=== PATIENT | female | born 1965 | race Caucasian/White ===

== ENCOUNTER 2019-07-18 08:28 | Outpatient (CLI) | payer BC, SELFPAY ==
--- NOTE | 2019-07-18 08:45 | CT_ITS ---
WS: [id number] CT ABDOMEN PELVIS TECHNIQUE: Contrast-enhanced CT of the abdomen and pelvis with coronal and sagittal reformatted image s. CLINICAL INFORMATION: SPLENOMEGALY, HEPATOMEGALY COMPARISON: None. DLP: 1113.[address] scans at [facility] use at least one of these dose optimization techniques: automat ed exposure control; mA and/or kV adjustment per patient size (includes targeted exams where dose is matched to clinical indication); or iterative reconstruction. FINDINGS: Mild diffuse fatty infiltration of the liver. Hepatomegaly. Spleen measures 11 CM [id number] within normal limits. No splenomegaly. Normal gastroesophageal junction. Small left pleural effusion with r ound atelectasis left lung base. Calcified granulomas in the lung bases. Normal portal vein and splen ic vein. Normal gallbladder. Adrenal glands are normal. Normal renal parenchymal enhancement. No abdominal lymphadenopathy. No periaortic or retroperitoneal lymphadenopathy. A few shoddy periaort ic lymph nodes. No inguinal lymphadenopathy. Degenerative disc disease L5-S1. CT/CT abdomen pelvis w con* [id number] IMPRESSION: 1. Mild diffuse fatty infiltration the liver with hepatomegaly. 2. Spleen within normal limits. 3. A few shotty periaortic lymph nodes. No abdominal lymphadenopathy. 4. Normal renal parenchymal enhancement. No hydronephrosis. 5. Small left pleural effusion with round atelectasis left lung base. 6. Normal caliber abdominal aorta.
[2019-07-18] MEDS: iohexol 300 mg/mL 100 mL Btl IV (10:08)
[2019-07-18] MEDS: iohexol 300 mg/mL 50 mL Btl PO (10:09)
== END 2019-07-18 08:29 | disposition home or self-care (01) ==
PROVIDERS: Family Provider Electrodiagnostic Medicine; PCP Family Medicine; Visit Provider Electrodiagnostic Medicine
DX: J90 Pleural effusion, not elsewhere classified (principal); R16.1 Splenomegaly, not elsewhere classified; R16.0 Hepatomegaly, not elsewhere classified; K76.0 Fatty (change of) liver, not elsewhere classified
CPT/HCPCS: 74177; Q9967

== ENCOUNTER 2019-10-29 13:40 | Outpatient (CLI) | payer BC, SELFPAY ==
[2019-11-01 12:42] LABS: HEP C RNA Viral Load Quant <1.18 NOT DETECTED Log IU/mL (NOT DETECTED); HEP C RNA Viral Load Quant <15 NOT DETECTED IU/mL (NOT DETECTED)
== END 2019-10-29 13:41 | disposition home or self-care (01) ==
LOC: LAB 13:43
PROVIDERS: Family Provider Electrodiagnostic Medicine; PCP Electrodiagnostic Medicine; Visit Provider Internal Medicine
DX: B19.20 Unspecified viral hepatitis C without hepatic coma (principal)
CPT/HCPCS: 36415; 87522

== ENCOUNTER 2020-01-03 14:51 | Outpatient (CLI) | payer BC, SELFPAY ==
--- NOTE | 2020-01-03 14:57 | XRR_ITS ---
PROCEDURE INFORMATION: Exam: XR Left Foot Complete Exam date and time: 01/03/2020 3:25 PM Age: 54 years old Clinical indication: Patient HX: Pain in joint involving left ankle and foot TECHNIQUE: Imaging protocol: XR Left foot. Views: 3 or more views. COMPARISON: US SoftTissue/Extrem Lmt [id number] 10/14/2018 8:53 AM FINDINGS: Bones/joints: There are mild diffuse degenerative changes in the foot. More prominent of the moderate degenerative changes at the 1st MTP joint and interphalangeal joint. There is some bony remodeling of the 5th proximal phalanx at the 5th PIP joint compatible with probable old remote injury. No periosteal reaction or inflammatory erosions. No acute fracture. No dislocation. The Lisfranc joint alignment is intact. There is a tiny calcaneal enthesophyte at the insertion of the Achilles tendon. No bony destruction or osteomyelitis. Soft tissues: There is no foreign body. XR/XR foot LT min 3V* [id number] IMPRESSION: No acute bony abnormality is identified. Degenerative changes are noted.
== END 2020-01-03 14:52 | disposition home or self-care (01) ==
LOC: RAD 14:54
PROVIDERS: PCP Electrodiagnostic Medicine; Visit Provider Electrodiagnostic Medicine
DX: M25.572 Pain in left ankle and joints of left foot (principal)
CPT/HCPCS: 73630

== ENCOUNTER 2021-02-17 09:25 | Outpatient (CLI) | payer BC, SELFPAY ==
--- NOTE | 2021-02-17 09:29 | CT_ITS ---
WS: [id number] CT NECK TECHNIQUE: Contrast-enhanced CT of the neck with coronal and sagittal reformatted images. CLINICAL INFORMATION: PARALYSIS OF VOCAL CORDS AND LARYNX, UNILATERAL, DYSPHONIA COMPARISON: None DLP: 1211.[address] scans at [facility] use at least one of these dose optimization techniques: automat ed exposure control; mA and/or kV adjustment per patient size (includes targeted exams where dose is matched to clinical indication); or iterative reconstruction. FINDINGS: Parotid glands are normal. Normal submandibular glands. Normal tongue base. Normal palatine tonsils. Normal posterior nasopharynx. Ballooning of the right laryngeal ventricle with medial rotation of the right arytenoid cartilage. Recommend correlation for right vocal cord paralysis. Subglottic airway is patent. Posterior fossa appears normal. Mastoid air cells are well aerated. Mild mucosal thickening paranasal sinuses. No cervical lymphadenopathy. Straightening of the normal cervi radha lordosis with ACDF C4-C7. CT/CT neck w con* [id number] IMPRESSION: 1. Ballooning of the right laryngeal ventricle with medial rotation of the rig ht arytenoid cartilage compatible with right vocal cord paralysis. 2. Normal salivary glands. 3. No evidence of supraglottic or glottic mass. 4. Prior ACDF C4-C7
[2021-02-17] MEDS: iohexol 300 mg/mL 100 mL Btl IV (10:02)
== END 2021-02-17 09:26 | disposition home or self-care (01) ==
PROVIDERS: PCP Electrodiagnostic Medicine; Visit Provider Specialist
DX: J38.01 Paralysis of vocal cords and larynx, unilateral (principal); R49.0 Dysphonia; Z98.1 Arthrodesis status
CPT/HCPCS: 70491; Q9967

== ENCOUNTER 2021-03-19 14:28 | Outpatient (CLI) | payer BC, SELFPAY ==
[2021-03-19 15:08] LABS: Basophils # 0.1 10^3/uL (0.0-0.1); Basophils % 0.9 %; Eosinophils # 0.2 10^3/uL (0.0-0.8); Eosinophils % 2.4 %; Hematocrit 43.5 % (37.0-47.0); Hemoglobin 14.6 g/dL (11.5-15.3); Lymphocytes # 2.7 10^3/uL (0.8-4.8); Lymphocytes % 35.2 %; Mean Corpuscular HGB Conc 33.6 g/dL (30.0-36.0); Mean Corpuscular Hemoglobin 29.5 pg (28.0-34.0); Mean Corpuscular Volume 87.9 fl (81-99); Mean Platelet Volume 10.1 fL (7.4-10.4); Monocytes # 0.6 10^3/uL (0.2-0.9); Monocytes % 8.5 %; Neutrophils # 3.99 10^3/uL (1.8-7.7); Neutrophils % 52.7 %; Nucleated Red Blood Cells % 0 %; Platelet Count 262 10^3/cmm (130-400); Red Blood Count 4.95 10^6/uL (4.1-5.3); Red Cell Distribution Width 12.6 % (12.1-15.1); White Blood Count 7.6 10^3/uL (4.0-10.0)
[2021-03-19 15:34] LABS: Alanine Aminotransferase 14 U/L (0-33); Albumin Level 4.7 g/dL (3.5-5.2); Alkaline Phosphatase 80 IU/L (35-105); Anion Gap 13.4 (5-19); Aspartate Amino Transferase 16 U/L (0-32); Blood Urea Nitrogen 6 mg/dL (6-20); Calcium 9.1 mg/dL (8.5-10.5); Carbon Dioxide 30 mmol/L (22-29); Chloride 102 mmol/L (98-107); Globulin 2.7 g/dL (1.3-4.6); Glomerular Filtration Rate 103.4 mL/min (90-130); Glucose 94 mg/dL (65-115); Osmolality Calculated 289 mOsm/kg (285-295); Potassium 4.4 mmol/L (3.5-5.1); Sodium 141 mmol/L (136-145); Total Bilirubin 0.2 mg/dL (0.15-1.2); Total Protein 7.4 g/dL (6.6-8.7)
--- NOTE | 2021-03-19 16:24 | ECG_ITS ---
[facility] Test Date: 2021-03-19 Pat Name: Nikia Madden Department: Room: Gender: Female Correspondence Dictator: : 1965 Requested By: Juan Tom Order Number: [id number] Subhash MD: Marisa Brewer M.D. Measurements Intervals [place] Rate: 57 P: 54 TN: 182 QRS: -26 QRSD: 86 T: 2 QT: 424 QTc: 416 Interpretive Statements SINUS BRADYCARDIA BORDERLINE LEFT AXIS DEVIATION [QRS AXIS < -20] POSSIBLE RIGHT VENTRICULAR CONDUCTION DELAY [RSR (QR) IN V1/V2] No previous ECG available for comparison Electronically Signed On 03-20-2021 19:17:24 CDT by Marisa Brewer M.D. [id number] f
== END 2021-03-19 14:29 | disposition home or self-care (01) ==
LOC: RT 14:33
PROVIDERS: PCP Electrodiagnostic Medicine; Visit Provider Specialist
DX: J38.01 Paralysis of vocal cords and larynx, unilateral (principal); Z01.810 Encounter for preprocedural cardiovascular examination; R49.0 Dysphonia; R00.1 Bradycardia, unspecified; R94.31 Abnormal electrocardiogram [ECG] [EKG]; Z20.822 Contact with and (suspected) exposure to COVID-19
CPT/HCPCS: 80053; 85025; 87635; 93005

== ENCOUNTER 2021-03-24 05:40 | Day surgery (SDC) | payer BC, SELFPAY ==
[2021-03-23 10:03] VITALS: BMI 31.6
[2021-03-24] VITALS (7 sets, daily range): BP systolic 104–152; BP diastolic 66–89; PULSE 63–85; RESP 16–20; TEMP 36.1–36.5; O2SAT 92–95
[2021-03-24] MEDS: sodium chloride 0.9% 1,000 ML 30 ML IV (06:19)
--- NOTE | 2021-03-24 06:48 | ANES.PREANE2 ---
Pre-Anesthetic Assessment Pre-Anesthetic Assessment: Height/Weight: Height 1.65 m Weight 86.183 kg Temp Pulse Resp BP Pulse Ox 97.1 F L 65 18 126/66 95 03/24/21 06:01 03/24/21 06:01 03/24/21 06:01 03/24/21 06:01 03/24/21 06:01 Proposed Procedure: Operation Date: 03/24/21 07:00 Proposed Procedures p Direct Laryngoscopy wiht injection to the true vocal cord 34839 J38.01(Not Applicable) - Juan Yap MD Was Beta Coleman taken within 24 hours: N/A Was Clonidine taken within 24 hours: N/A Last intake: Intake Last Liquid Date 03/23/21 Last Liquid Time 22:00 Last Solid Date 03/23/21 Last Solid Time 21:00 Social: Social History: Tobacco (Vapes) and No alcohol Exam: Pre-Anes Outpt Exam: alert, oriented x 3, clear to auscultation bilaterally and regular rate & rhythm Airway: Submandibular: WNL Cervical ROM: WNL (H/o of ACDF but maintains reasonable ROM) MP: 2 Dentition: False (Upper) Additional comments: Hoarse Pulmonary: Pulmonary: COPD Hepatic: Hepatic: Hepatitis (Hep C) Metabolic: Metabolic: Morbid obesity Neuropsych: Neuropsych: Anxiety Anesthetic Plan: ASA status: 3 Anesthesia: General Risk of > 500 ml blood loss (7ml/kg in children): No Meds/Allergies Current Medications: Current Medications Generic Name Dose Route Start Last Admin Trade Name Freq PRN Reason Stop Dose Admin Sodium Chloride 1,000 mls @ 30 ml s/hr 03/24/21 06:00 03/24/21 06:19 Sodium Chloride 0.9% IV 03/25/21 05:59 30 mls/hr .Q24H SHANITA Administration PFSH Anesthesia PFSH: Family History Other CAD (coronary artery disease) Cancer Diabetes Social History Smoking and tobacco status: current every day smoker e-cigarettes E-Cigarette Details: without nicotine Alcohol intake: never History of recent travel: No Data Anesthesia Cardiac Studies: No Data to Display
--- NOTE | 2021-03-24 07:38 | W.PM.OPSUD ---
Surgery/Procedure H&P Update DATE OF PROCEDURE: March 24, 2021 DATE H&P PERFORMED: 03/16/21 H&P UPDATE INFORMATION: I have reviewed H&P completed within last 30 days, I have examined patient prior to procedure and No changes to prior documentation PREOP DIAGNOSIS: Right true vocal cord paralysis PRIMARY INDICATION FOR PROCEDURE: Right true vocal cord paralysis PLANNED PROCEDURE: Operation Date: 03/24/21 07:00 Proposed Procedures p Direct Laryngoscopy wiht injection to the true vocal cord 24494 J38.01(Not Applicable) - Juan Yap MD
--- NOTE | 2021-03-24 08:29 | P.OP_ITS ---
Operative Report Date of procedure: March 24, 2021 Pre-op Diagnosis: Right true vocal cord paralysis Post-op diagnosis: same Post-op Findings: Normal laryngeal exam Procedure Done: Injection laryngoplasty, right true vocal cord Microdirect laryngoscopy Implants: Right true vocal cord prolaryn gel implant - 0.5 mL Specimens removed/disposition: None Pathology: none sent Surgeon: Juan Yap Licensed Occupational Therapy Assistant: Yogesh Edwards Anesthesia: General Estimated blood loss (mL): 1 IV fluids (mL): 700 Complications: None Findings: Normal laryngeal exam Condition: stable Disposition: PACU Brief History: 55 yo wf with a h/o right true vocal cord paralysis who desires surgical therapy. Procedure: The patient was identified in the preoperative holding area and was taken to the operating room where she was placed on the operating table in the supine position. Anesthesia was obtained with general endotracheal anesthesia and the table was then turned 90 degrees to the patient's left. A moist Ray-Klaudia was placed on the patient's maxillary gingiva and an operative laryngoscope was advanced down the right oral cavity gutter under direct vision until the larynx came into view. A systematic inspection was then carried to the patient's larynx with the findings noted above. The patient was placed on suspension with the Ed arm. At this point the 0 degree Hankins madelyn surgical telescope was advanced into the larynx and was used to visualize the laryngeal needle as it was inserted into the right vocalis muscle lateral to the vocal process of the arytenoid. 1/2 mL of prolaryngeal was injected into the right true vocal cord vocalis muscle lateral to the vocal process of the arytenoid cartilage to medial ize the right true vocal cord. Once this was accomplished, the patient was taken off suspension and the procedure was terminated. The laryngoscope was removed from the patient and control of the patient was returned to anesthesia where she underwent an uneventful reversal of anesthesia and extubation and was taken to the recovery room in stable condition. There were no operative or anesthetic complications.
--- NOTE | 2021-03-25 07:48 | ANE.PACU2 ---
Inpatient post-anesthesia follow up: Airway intact: Yes Vital signs: Temperature 97.3 F Pulse Rate 63 Respiratory Rate 18 Blood Pressure 133/77 Pulse Oximetry 95 Oxygen Delivery Me thod Room Air Oxygen Flow Rate Fraction of Inspir ed Oxygen Hydration adequate: Yes Nausea and vomiting: No Pain level: 2 Mental status: Baseline
== END 2021-03-24 09:25 | disposition home or self-care (01) ==
PROVIDERS: PCP Electrodiagnostic Medicine; Visit Provider Specialist
PROC: 0CJS8ZZ Inspection of Larynx, Via Natural or Artificial Opening Endoscopic (ICD-10-PCS; CPT 31571; principal; 2021-03-24 07:00)
DX: J38.01 Paralysis of vocal cords and larynx, unilateral (principal); J44.9 Chronic obstructive pulmonary disease, unspecified; F17.290 Nicotine dependence, other tobacco product, uncomplicated; Z86.19 Personal history of other infectious and parasitic diseases; E66.01 Morbid (severe) obesity due to excess calories; Z68.31 Body mass index [BMI] 31.0-31.9, adult; F41.9 Anxiety disorder, unspecified; Z82.49 Family history of ischemic heart disease and other diseases of the circulatory system
CPT/HCPCS: 31571; 12345; J0330; J1100; J2405; J2704; J3010; J7030

== ENCOUNTER 2021-04-28 09:26 | Outpatient (RCR) | payer BC, SELFPAY | END 2021-05-03 23:59 | disposition home or self-care (01) | LOC: SST 09:26 | PROVIDERS: PCP Electrodiagnostic Medicine; Visit Provider Otolaryngology | DX: R49.0 Dysphonia (principal) | CPT/HCPCS: 92524 ==

== ENCOUNTER 2021-05-04 06:00 | Outpatient (RCR) | payer BC, SELFPAY | END 2021-05-20 23:59 | disposition home or self-care (01) | LOC: SST 06:00 | PROVIDERS: PCP Electrodiagnostic Medicine; Visit Provider Otolaryngology | DX: J38.01 Paralysis of vocal cords and larynx, unilateral (principal); R49.0 Dysphonia | CPT/HCPCS: 92507 ==

== ENCOUNTER 2021-07-22 08:34 | Outpatient (CLI) | payer BC, SELFPAY ==
--- NOTE | 2021-07-22 08:42 | MM_ITS ---
WS: [id number] BILATERAL DIGITAL SCREENING MAMMOGRAPHY WITH CAD CLINICAL INFORMATION: SCREENING HISTORY: Screening mammogram. No current complaints. COMPARISON: None. TECHNIQUE: Bilateral CC and MLO views. FINDINGS: Scattered fibroglandular densities bilaterally. No suspicious focal mass, asymmetry, calcifications, or architectural distortion. No evidence of malignancy. MM/[place] [id number] IMPRESSION: BI-RADS: 1-Negative FOLLOW UP: 1 Year Follow-up Recommend return to annual screening mammography.
== END 2021-07-22 08:35 | disposition home or self-care (01) ==
LOC: RADSHAW 08:39
PROVIDERS: PCP Electrodiagnostic Medicine; Visit Provider Electrodiagnostic Medicine
DX: Z12.31 Encounter for screening mammogram for malignant neoplasm of breast (principal)
CPT/HCPCS: 77067

== ENCOUNTER → 2022-08-04 11:10 | Outpatient (BNVA) | payer BC, SELFPAY | PROVIDERS: PCP Family Medicine; Visit Provider Clinical Nurse Specialist Adult Health | DX: R59.1 Generalized enlarged lymph nodes (principal) | CPT/HCPCS: 85025; 85651; 86140 ==

== ENCOUNTER → 2022-08-12 11:59 | Outpatient (BNVA) | payer BC, SELFPAY | PROVIDERS: PCP Family Medicine; Visit Provider Family Medicine | DX: E04.1 Nontoxic single thyroid nodule (principal); R03.0 Elevated blood-pressure reading, without diagnosis of hypertension | CPT/HCPCS: 84439; 84443 ==

== ENCOUNTER 2022-09-08 11:58 | Outpatient (CLI) | payer BC, SELFPAY ==
--- NOTE | 2022-09-08 12:15 | US_ITS ---
WS: [id number] THYROID ULTRASOUND HISTORY: lump at inferior aspect of thyroid at sternal notch COMPARISON: None available. Right lobe: 2.1 cm x 1.8 cm x 4.2 cm (w x ap x l). Volume: 8.0 cm3. Enlarged heterogeneous coarse thyroid. No suspicious nodules. No echogenic foci or increased vascular ity. Small colloid cyst along the RIGHT isthmus. Maximum diameters colloid cyst is 5 mm. Left lobe: 1.9 cm x 1.0 cm x 4.7 cm (w x ap x l). Volume: 4.7 cm3. Normal size gland with heterogeneity. Hypoechoic nodule in the superior gland measures 8 x 5 x 6 mm. Margins are smooth. No increased vascularity or echogenic foci. Isthmus: 0.2 cm. Palpable area near the sternal notch is not present today as described by the patient. US/US thyroid [id number] IMPRESSION: 1. Enlarged coarse RIGHT thyroid. 2. Benign RIGHT isthmus colloid cyst. 3. Subcentimeter hypoechoic nodule LEFT thyroid.
== END 2022-09-08 11:59 | disposition home or self-care (01) ==
PROVIDERS: PCP Family Medicine; Visit Provider Clinical Nurse Specialist Adult Health
DX: E04.9 Nontoxic goiter, unspecified (principal); E04.1 Nontoxic single thyroid nodule
CPT/HCPCS: 76536

== ENCOUNTER 2022-12-29 07:54 | Outpatient (CLI) | payer BC, SELFPAY ==
--- NOTE | 2022-12-29 08:02 | MM_ITS ---
WS: [id number] VIEWS: MLO and CC views both breasts. 3D digital tomosynthesis is also included in this exam. Comparison made with prior exam of 07/22/2021. Findings: There was no sign of mass, architectural distortion or suspicious calcification in either breast. Th ere are areas of scattered fibroglandular density MM/[place] [id number] Impression: BI-RADS: 2-Benign finding. FOLLOW-UP: 1 Year Follow-up This mammogram was also analyzed by the Computer Aided Detection System R2 Imag e [employer].
== END 2022-12-29 07:55 | disposition home or self-care (01) ==
PROVIDERS: PCP Family Medicine; Visit Provider Family Medicine
DX: Z12.31 Encounter for screening mammogram for malignant neoplasm of breast (principal)
CPT/HCPCS: 77063; 77067

== ENCOUNTER 2023-11-04 12:01 | Outpatient (CLI) | payer OTHER, SELFPAY ==
--- NOTE | 2023-11-04 12:06 | MR_ITS ---
WS: [id number] MRI CERVICAL SPINE NONCONTRAST TECHNIQUE: Sagittal T1, T2 and STIR imaging. Axial T2, gradient, and fiesta imaging. CLINICAL INFORMATION: DDD, CERVICAL/CERVICAL FUSION SYNDROME COMPARISON: MRI 2018 FINDINGS: Straightening of the normal cervical lordosis. Postoperative changes are new compared to 2018. ACDF C 4-C7 with interbody fusion grafts. Chronic myelomalacia in the cervical cord similar to the prior exa mination. No high-grade central canal stenosis. Susceptibility artifact from hardware degrades some i mages. C2-C3: Mild disc osteophyte ridging. Mild facet arthropathy. Mild LEFT bony foraminal narrowing. C3-C4: Mild disc bulge with endplate ridging. Moderate LEFT facet arthropathy. Moderate LEFT and no s ignificant RIGHT foraminal narrowing. C4-C5: Postoperative changes ACDF. Spinal canal is patent. Moderate LEFT facet arthropathy with moder ate LEFT greater than RIGHT bony foraminal narrowing. Mild residual central canal stenosis. C5-C6: Postoperative changes ACDF. Moderate LEFT facet arthropathy. Mild central canal stenosis. Mild to moderate bony foraminal narrowing. C6-C7: Postoperative changes ACDF. Mild central canal stenosis. Moderate LEFT and mild RIGHT bony for aminal narrowing. C7-T1: Minimal disc bulging. Mild bilateral bony foraminal narrowing. Spinal canal is patent. Visualized brain stem structures: Normal. Prevertebral soft tissues: Normal. Tiny disc protrusions in the upper thoracic spine at T1-2 and T2-3. MR/MR cervical spin wo con* [id number] IMPRESSION: 1. Postoperative changes with ACDF new compared to previous with improved cent ral canal stenosis. Mild residual central canal stenosis at the fusion levels w ith chronic myelomalacia similar in appearance to previous. 2. Mild LEFT C2-3 and moderate LEFT C3-4 bony foraminal narrowing. 3. Mild to moderate bony foraminal narrowing at the fusion levels although aris ewhat difficult to visualize due to susceptibility artifact.
== END 2023-11-04 12:02 | disposition home or self-care (01) ==
LOC: RAD 12:02
PROVIDERS: PCP Family Medicine; Visit Provider General Practice
DX: M50.30 Other cervical disc degeneration, unspecified cervical region (principal); Q76.1 Klippel-Feil syndrome
CPT/HCPCS: 72141